=== PATIENT | male | born 1985 | race Caucasian/White ===

== ENCOUNTER 2019-03-27 12:20 | Emergency (ER) | payer SELFPAY ==
--- NOTE | 2019-03-27 13:47 | Emergency Department Report ---
- General Chief Complaint: Wound/Laceration Stated Complaint: CUT ON L FINGER Time Seen by Provider: 03/27/19 12:43 Source: patient, family Mode of arrival: Ambulatory Limitations: Language Barrier - History of Present Illness Initial Comments: Patient is a 33-year-old male who presents to the emergency room with complaints of a laceration to the left index finger that occurred while at work at 11:40 a.m. today. Patient was using a wood cutting saw. He states initially there was bleeding but has since resolved. He denies any pain in the finger just has pain where the laceration is. He is able to move the finger. denies any Past medical history or allergies to medications. He states his last tetanus was in June 2018. setswana translation by daughter - Related Data Previous Rx's Medication Instructions Recorded Last Taken Type cephALEXin [Keflex] 250 mg PO QID 7 Days #28 capsule 03/27/19 Unknown Rx Allergies Allergy/AdvReac Type Severity Reaction Status Date / Time No Known Allergies Allergy Verified 03/27/19 15:36 ED Review of Systems ROS: Stated complaint: CUT ON L FINGER Other details as noted in HPI Comment: All other systems reviewed and negative ED Past Medical Hx - Past Medical History Previous Medical History?: No - Surgical History Past Surgical History?: No - Social History Smoking Status: Current Every Day Smoker Substance Use Type: Alcohol - Medications Home Medications: Home Medications Medication Instructions Recorded Confirmed Last Taken Type cephALEXin [Keflex] 250 mg PO QID 7 Days #28 capsule 03/27/19 Unknown Rx ED Physical Exam - General Limitations: Language Barrier General appearance: alert, in no apparent distress - Head Head exam: Present: atraumatic, normocephalic - Eye Eye exam: Present: normal appearance - ENT ENT exam: Present: mucous membranes moist - Neurological Exam Neurological exam: Present: alert, oriented X3 - Psychiatric Psychiatric exam: Present: normal affect, normal mood - Skin Skin exam: Present: warm, dry, other (1 cm laceration to the dorsal surface of the left index finger which then becomes a skin avulsion into another 1 cm laceration that wraps around the finger, no tendon invovlement, no foreign body visualized, FROM of the left index finger, 2+ radial pulse, sensation intact) ED Course Vital Signs 03/27/19 03/27/19 12:29 16:37 Temperature 98.3 F 98.1 F Pulse Rate 73 80 Respiratory 18 18 Rate Blood Pressure 128/85 Blood Pressure 130/78 [Left] O2 Sat by Pulse 97 100 Oximetry - Laceration /Wound Repair Left Finger Wound Location: upper extremity (dorsum of left index finger) Wound Length (cm): 1 (1 cm laceration to the dorsal surface of the left index finger which then becomes a skin avulsion into another 1 cm laceration that wraps around the finger) Wound's Depth, Shape: irregular Wound Explored: clean Irrigated w/ Saline (ccs): 200 Betadine Prep?: Yes Volume Anesthetic (ccs): 3 (2% lidocaine) Wound Debrided: minimal Wound Repaired With: sutures Suture Size/Type: 5:0 Number of Sutures: 6 Layer Closure?: No Sterile Dressing Applied?: Yes Progress: area irrigated with 200 cc of saline, cleaned with betadine, 3 cc of 2% lidocaine without epi used for anesthetic, repaired with 5-0 prolene, [address], unable to fully approximate skin where area of skin avulsion is present, pt tolerated well, bleeding controlled, no complications, sterile dressing and splint applied ED Medical Decision Making - Radiology Data Radiology results: report reviewed Left index finger 3 views 1421 INDICATION: Chainsaw injury to index finger Patient's watch and ring finger ring or left in place. Bandaging is seen over the index finger laceration site. At the laceration site along the lateral aspect of the index finger at the distal interphalangeal joint, a penetrating fracture injury of the distal portion of the middle phalanx is seen along the lateral aspect. Possibly there is a tiny adjacent fragment though bandaging artifact makes this difficult to assess. No dislocation is seen. No other fracture is noted. Fracture line does not appear to extend into the joint space. Signer Name: Johnie Salcedo MD Signed: 03/27/2019 3:00 PM Workstation Name: [id number] Transcribed By: GJ Dictated By: Johnie Salcedo MD Electronically Authenticated By: Johnie Salcedo MD Signed Date/Time: 03/27/19 150 - Medical Decision Making Patient is a 33-year-old male who presents to the emergency room with complaints of a laceration to the left index finger that occurred while at work at 11:40 a.m. today. Patient was using a wood cutting saw. He states initially there was bleeding but has since resolved. He denies any pain in the finger just has pain where the laceration is. He is able to move the finger. denies any Past medical history or allergies to medications. He states his last tetanus was in June 2018. setswana translation by daughter. on exam: 1 cm laceration to the dorsal surface of the left index finger which then becomes a skin avulsion into another 1 cm laceration that wraps around the finger, no tendon invovlement, no foreign body visualized, FROM of the left index finger, 2+ radial pulse, sensation intact. laceration irrigated thoroughly with saline and cleaned with betadine. XR of the left index finger: At the laceration site along the lateral aspect of the index finger at the distal interphalangeal joint, a penetrating fracture injury of the distal portion of the middle phalanx is seen along the lateral aspect. Possibly there is a tiny adjacent fragment though bandaging artifact makes this difficult to assess. No dislocation is seen. No other fracture is noted. Fracture line does not appear to extend into the joint space. discussed with Dr. Mau Youssef open fracture findings, recommended thorough washout and placing on keflex, and to send to orthopedic as an outpatient. pt given prescription for keflex. advised to please keep area clean and dry. may wash with soap and water and immediately dry. Do not get in bathtub, hot tub, pool. take all medication as prescribed. Please follow-up with an orthopedic doctor in the next 2-3 days. It is very important that you follow-up with an orthopedic doctor. Return to the emergency room for any new or worsening symptoms or any signs of infection. Sutures will need to be removed in 7-10 days. Critical care attestation.: If time is entered above; I have spent that time in minutes in the direct care of this critically ill patient, excluding procedure time. ED Disposition Clinical Impression: Laceration Finger fracture Qualifiers: Encounter type: initial encounter Finger: index finger Fracture type: open Phalanx: middle Fracture alignment: nondisplaced Laterality: left Qualified Code(s): S62.651B - Nondisplaced fracture of middle phalanx of left index finger, initial encounter for open fracture Disposition: - TO HOME OR SELFCARE Is pt being admited?: No Does the pt Need Aspirin: No Condition: Stable Instructions: Suture Care (ED), Laceration (ED), Finger Fracture (ED) Additional Instructions: Please keep area clean and dry. may wash with soap and water and immediately dry. Do not get in bathtub, hot tub, pool. take all medication as prescribed. Please follow-up with an orthopedic doctor in the next 2-3 days. It is very important that you follow-up with an orthopedic doctor. Return to the emergency room for any new or worsening symptoms or any signs of infection. Sutures will need to be removed in 7-10 days. Prescriptions: cephALEXin [Keflex] 250 mg PO QID 7 Days #28 capsule Referrals: [facility] MD GRAHAM [Primary Care Provider] - 3-5 Days YOGESH BLAKE MD [Staff Physician] - 2-3 Days MICHELE PLUNKETT MD [Referring] - 2-3 Days Time of Disposition: 16:16 Print Language: LAO
--- NOTE | 2019-03-27 15:05 | XRay Report ---
Left index finger 3 views 1421 INDICATION: Chainsaw injury to index finger Patient's watch and ring finger ring or left in place. Bandaging is seen over the index finger lacera tion site. At the laceration site along the lateral aspect of the index finger at the distal interphalangeal christine nt, a penetrating fracture injury of the distal portion of the middle phalanx is seen along the later al aspect. Possibly there is a tiny adjacent fragment though bandaging artifact makes this difficult to assess. No dislocation is seen. No other fracture is noted. Fracture line does not appear to exten d into the joint space. Signer Name: Johnie Salcedo MD Signed: 03/27/2019 3:00 PM Workstation Name: [id number]
[2019-03-27] MEDS ORDERED: NACL 0.9% IR ONE (15:24)
[2019-03-27] MEDS ORDERED: XYLOCAINE 2% INFILTRATI ONE (15:24)
[2019-03-27] MEDS ORDERED: NACL 0.9% 500 ML IR ONE (15:28)
[2019-03-27 16:38] VITALS: BP 130/78
== END 2019-03-27 16:37 | disposition home or self-care (01) ==
LOC: ED 12:20
DX: S62.651A Nondisplaced fracture of middle phalanx of left index finger, initial encounter for closed fracture (principal); F17.200 Nicotine dependence, unspecified, uncomplicated; W27.8XXA Contact with other nonpowered hand tool, initial encounter; Y93.89 Activity, other specified; Y92.89 Other specified places as the place of occurrence of the external cause; Y99.8 Other external cause status

== ENCOUNTER 2021-04-27 13:54 | Emergency (ER) | payer SELFPAY ==
[2021-04-27 14:09] VITALS: BP 123/76
--- NOTE | 2021-04-27 14:24 | XRay Report ---
CHEST 2 VIEWS INDICATION: cough. COMPARISON: None FINDINGS: SUPPORT DEVICES: None. HEART: Within normal limits. LUNGS/PLEURA: Mild patchy multifocal airspace disease throughout the lungs. No pneumothorax. ADDITIONAL FINDINGS: None. IMPRESSION: 1. Pulmonary findings as above. Signer Name: Lorenzo Benavidez MD Signed: 04/27/2021 2:20 PM Workstation Name: [id number]
[2021-04-27 14:33] LABS: Basophils # (Auto) 0.1 K/mm3 (0.0-0.1); Basophils % (Auto) 1.7 % (0.0-1.8); Hematocrit 43.5 % (35.5-45.6); Hemoglobin 15.5 gm/dl (11.8-15.2); Lymphocytes # (Auto) 0.5 K/mm3 (1.2-5.4); Lymphocytes % (Auto) 11.2 % (13.4-35.0); Mean Corpuscular HGB Conc 36 % (32-34); Mean Corpuscular Volume 87 fl (84-94); Monocytes # (Auto) 0.2 K/mm3 (0.0-0.8); Monocytes % (Auto) 3.8 % (0.0-7.3); Platelet Count 217 K/mm3 (140-440); Red Blood Count 4.99 M/mm3 (3.65-5.03); Red Cell Distribution Width 12.2 % (13.2-15.2)
[2021-04-27 14:51] LABS: Alanine Aminotransferase 38 units/L (7-56); Albumin 3.9 g/dL (3.9-5); BUN/Creatinine Ratio 14; Blood Urea Nitrogen 11 mg/dL (9-20); Calcium 8.7 mg/dL (8.4-10.2); Hemolysis Index 2
--- NOTE | 2021-04-27 15:07 | Emergency Department Report ---
- General Chief Complaint: Upper Respiratory Infection Stated Complaint: HARD TO BREATHE, COUGH Time Seen by Provider: 04/27/21 14:03 Source: patient, server engineer (ms masterson, information systems security developer and du, legal secretary ) Mode of arrival: Ambulatory Limitations: No Limitations - History of Present Illness Initial Comments: Patient is a 35-year-old male presents emergency room complaints of symptoms of COVID-19. He states he began having symptoms on 04/21/2021. He states that he tested positive for COVID-19 on 04/24/2021. He reports he went to his primary care doctor and was started on Levaquin and prednisone. He states his biggest complaint is a dry cough. He states that the cough keeps him up at night. He states he has some chest discomfort after frequent coughing but otherwise denies any chest pain. He denies any shortness of breath, vomiting, diarrhea, fever. No past medical history. No allergies to medications. His is also positive for COVID-19. He did not receive vaccination for COVID-19. - Related Data Previous Rx's Medication Instructions Recorded Last Taken Type cephALEXin [Keflex] 250 mg PO QID 7 Days #28 capsule 03/27/19 Unknown Rx Azithromycin [Zithromax TAB] 250 mg PO QDAY 5 Days #6 tablet 04/27/21 Unknown Rx Benzonatate [Tessalon Perles] 100 mg PO Q8HR PRN #20 capsule 04/27/21 Unknown Rx Allergies Allergy/AdvReac Type Severity Reaction Status Date / Time No Known Allergies Allergy Verified 03/27/19 15:36 ED Review of Systems ROS: Stated complaint: HARD TO BREATHE, COUGH Other details as noted in HPI Comment: All other systems reviewed and negative ED Past Medical Hx - Past Medical History Previous Medical History?: No - Surgical History Past Surgical History?: No - Social History Smoking Status: Current Some Day Smoker Substance Use Type: None - Medications Home Medications: Home Medications Medication Instructions Recorded Confirmed Last Taken Type cephALEXin [Keflex] 250 mg PO QID 7 Days #28 capsule 03/27/19 Unknown Rx Azithromycin [Zithromax TAB] 250 mg PO QDAY 5 Days #6 tablet 04/27/21 Unknown Rx Benzonatate [Tessalon Perles] 100 mg PO Q8HR PRN #20 capsule 04/27/21 Unknown Rx ED Physical Exam - General Limitations: No Limitations General appearance: alert, in no apparent distress - Head Head exam: Present: atraumatic, normocephalic - Eye Eye exam: Present: normal appearance - ENT ENT exam: Present: mucous membranes moist - Respiratory Respiratory exam: Present: normal lung sounds bilaterally. Absent: respiratory distress, wheezes, rales, rhonchi, stridor, chest wall tenderness, accessory muscle use, decreased breath sounds, prolonged expiratory - Cardiovascular Cardiovascular Exam: Present: regular rate, normal rhythm, normal heart sounds. Absent: systolic murmur, diastolic murmur, rubs, gallop - Neurological Exam Neurological exam: Present: alert, oriented X3 - Psychiatric Psychiatric exam: Present: normal affect, normal mood - Skin Skin exam: Present: warm, dry, intact ED Course Vital Signs 04/27/21 14:01 Temperature 99.5 F Pulse Rate 86 Respiratory 20 Rate Blood Pressure 123/76 O2 Sat by Pulse 98 Oximetry ED Medical Decision Making - Lab Data Result diagrams: 04/27/21 14:08 04/27/21 14:08 Lab Results 04/27/21 04/27/21 Range/Units 14:08 14:08 WBC 4.7 (4.5-11.0) K/mm3 RBC 4.99 (3.65-5.03) M/mm3 Hgb 15.5 H (11.8-15.2) gm/dl Hct 43.5 (35.5-45.6) % MCV 87 (84-94) fl MCH 31 (28-32) pg MCHC 36 H (32-34) % RDW 12.2 L (13.2-15.2) % Plt Count 217 (140-440) K/mm3 Lymph % (Auto) 11.2 L (13.4-35.0) % Moody % (Auto) 3.8 (0.0-7.3) % Eos % (Auto) 0.0 (0.0-4.3) % Baso % (Auto) 1.7 (0.0-1.8) % Lymph # (Auto) 0.5 L (1.2-5.4) K/mm3 Moody # (Auto) 0.2 (0.0-0.8) K/mm3 Eos # (Auto) 0.0 (0.0-0.4) K/mm3 Baso # (Auto) 0.1 (0.0-0.1) K/mm3 Seg Neutrophils % 83.3 H (40.0-70.0) % Seg Neutrophils # 3.9 (1.8-7.7) K/mm3 Sodium 135 L (137-145) mmol/L Potassium 3.9 (3.6-5.0) mmol/L Chloride 100.4 (98-107) mmol/L Carbon Dioxide 24 (22-30) mmol/L Anion Gap 15 mmol/L BUN 11 (9-20) mg/dL Creatinine 0.8 (0.8-1.3) mg/dL Estimated GFR > 60 ml/min BUN/Creatinine Ratio 14 % Glucose 111 H (75-100) mg/dL Calcium 8.7 (8.4-10.2) mg/dL Total Bilirubin 0.50 (0.1-1.2) mg/dL AST 39 (5-40) units/L ALT 38 (7-56) units/L Alkaline Phosphatase 89 (35-129) units/L Total Protein 7.1 (6.3-8.2) g/dL Albumin 3.9 (3.9-5) g/dL Albumin/Globulin Ratio 1.2 % - Radiology Data Radiology results: report reviewed Ordering Physician: NESTOR EDMONDSON Date of Service: 04/27/21 Procedure(s): XR chest routine 2V Accession Number(s): [id number] cc: NESTOR EDMONDSON Fluoro Time In Minutes: CHEST 2 VIEWS INDICATION: cough. COMPARISON: None FINDINGS: SUPPORT DEVICES: None. HEART: Within normal limits. LUNGS/PLEURA: Mild patchy multifocal airspace disease throughout the lungs. No pneumothorax. ADDITIONAL FINDINGS: None. IMPRESSION: 1. Pulmonary findings as above. Signer Name: Lorenzo Benavidez MD Signed: 04/27/2021 2:20 PM Workstation Name: [id number] Transcribed By: TOOTIE Dictated By: Lorenzo Benavidez MD Electronically Authenticated By: Lorenzo Benavidez MD Signed Date/Time: 04/27/21 142 DD/ 18 TD/TT: Print - Medical Decision Making Patient is a 35-year-old male presents emergency room complaints of symptoms of COVID-19. He states he began having symptoms on 04/21/2021. He states that he tested positive for COVID-19 on 04/24/2021. He reports he went to his primary care doctor and was started on Levaquin and prednisone. He states his biggest complaint is a dry cough. He states that the cough keeps him up at night. He states he has some chest discomfort after frequent coughing but otherwise denies any chest pain. He denies any shortness of breath, vomiting, diarrhea, fever. No past medical history. No allergies to medications. His is also pos itive for COVID-19. He did not receive vaccination for COVID-19. Vitals are normal. No abnormality on physical examination as documented in chart. Patient is able to maintain oxygen saturation of 98 percent or higher on room air. Labs are stable. Chest x-ray: SUPPORT DEVICES: None. HEART: Within normal limits. LUNGS/PLEURA: Mild patchy multifocal airspace disease throughout the lungs. No pneumothorax. ADDITIONAL FINDINGS: None. Findings likely consistent with atypical pneumonia/COVID pneumonia. Discussed case with Dr. Bales, ER attending who advised to add on azithromycin given the atypical appearance and to give patient prescription for Tessalon Perles. advised pt Please take medication as prescribed. Please increase your fluid intake over the next several days. May take Tylenol as needed for fever or body aches. Follow-up with a primary care doctor for reexamination. Return to emergency room immediately for any new or worsening symptoms including but not limited to difficulty breathing, shortness of breath, severe chest pain, unable to tolerate by mouth intake, etc. Please self quarantine for 10 days from the onset of your symptoms. Advised for you to get a pulse oximetry meter [id number] and to return if your oxygen is below 93%. Critical care attestation.: If time is entered above; I have spent that time in minutes in the direct care of this critically ill patient, excluding procedure time. ED Disposition Clinical Impression: Pneumonia due to COVID-19 virus Disposition: HOME / SELF CARE / HOMELESS Is pt being admited?: No Does the pt Need Aspirin: No Condition: Stable Instructions: COVID-19 Frequently Asked Questions, COVID-19, COVID-19: How to Protect Yourself and Others - CDC, Bacterial Pneumonia (ED) Additional Instructions: Please take medication as prescribed. Please increase your fluid intake over the next several days. May take Tylenol as needed for fever or body aches. Follow-up with a primary care doctor for reexamination. Return to emergency room immediately for any new or worsening symptoms including but not limited to difficulty breathing, shortness of breath, severe chest pain, unable to tolerate by mouth intake, etc. Please self quarantine for 10 days from the onset of your symptoms. Advised for you to get a pulse oximetry meter [id number] and to return if your oxygen is below 93%. Vaughn la medicacin segn lo prescrito. Aumente la ingesta de lquidos anoop los prximos vega. Puede christopher Tylenol segn sea necesario para la fiebre o los patrice corporales. Hubert un seguimiento con un mdico de atencin primaria para un nuevo examen. Regrese a la dino de emergencias de inmediato si tiene sntomas nuevos o que empeoran, incluidos, entre otros, dificultad para respirar, falta de aire, dolor de pecho mery, incapacidad para tolerar la ingestin oral, etc. Pngase en cuarentena anoop 10 vega desde el inicio de eduardo sntomas. Se le recomienda que obtenga un medidor de oximetra de pulso de venta marjorie y que regrese si miller oxgeno est por debajo del 93%. Prescriptions: Benzonatate [Tessalon Perles] 100 mg PO Q8HR PRN #20 capsule PRN Reason: cough Azithromycin [Zithromax TAB] 250 mg PO QDAY 5 Days #6 tablet Referrals: ARACELIS GRAYSON MD [Staff Physician] - 2-3 Days your, primary care doctor [Other] - 2-3 Days Time of Disposition: 15:05 Print Language: KISWAHILI
== END 2021-04-28 04:19 | disposition home or self-care (01) ==
LOC: ED 13:54
DX: U07.1 COVID-19 (principal); J12.82 Pneumonia due to coronavirus disease 2019; F17.200 Nicotine dependence, unspecified, uncomplicated; Z79.899 Other long term (current) drug therapy
CPT/HCPCS: 36415; 71046; 80053; 85025

== ENCOUNTER 2021-04-29 22:55 | Emergency (ER) | payer SELFPAY ==
[2021-04-30 01:09] VITALS: BP 121/64
[2021-04-30] MEDS ORDERED: IPRATROPIUM 0.02% NEBU 2.5 ML IH ONE ×2 (01:15→04:10)
[2021-04-30] MEDS ORDERED: ALBUTEROL 2.5 MG/3 ML NEBU IH ONE ×2 (01:15→04:10)
[2021-04-30] MEDS ORDERED: methylPREDNISolone Sod Succinate 125 MG/2 ML INJ IM ONE ×2 (01:16→04:10)
--- NOTE | 2021-04-30 01:51 | XRay Report ---
CHEST 1 VIEW 04/30/2021 12:41 AM INDICATION / CLINICAL INFORMATION: cough, +covid. COMPARISON: 04/27/2021 FINDINGS: SUPPORT DEVICES: None. HEART / MEDIASTINUM: No significant abnormality. LUNGS / PLEURA: Patchy bilateral infiltrates remain with slight worsening. No pneumothorax or pleural fluid. ADDITIONAL FINDINGS: No significant additional findings. IMPRESSION: Slight worsening bilateral pneumonia. Signer Name: Juice Bone MD Signed: 04/30/2021 1:47 AM Workstation Name: [id number]
[2021-04-30 02:58] LABS: Alanine Aminotransferase 49 units/L (7-56); Albumin 3.8 g/dL (3.9-5); Blood Urea Nitrogen 11 mg/dL (9-20); Calcium 8.3 mg/dL (8.4-10.2); Hemolysis Index 0
[2021-04-30 03:07] LABS: BUN/Creatinine Ratio 16
[2021-04-30 03:25] LABS: Hemoglobin 14.5 gm/dl (11.8-15.2); Lymphocytes # (Auto) 1.1 K/mm3 (1.2-5.4); Lymphocytes % (Auto) 13.4 % (13.4-35.0); Mean Corpuscular HGB Conc 35 % (32-34); Mean Corpuscular Volume 87 fl (84-94); Monocytes # (Auto) 0.4 K/mm3 (0.0-0.8); Monocytes % (Auto) 5.3 % (0.0-7.3); Platelet Count 312 K/mm3 (140-440); Red Cell Distribution Width 12.3 % (13.2-15.2)
--- NOTE | 2021-04-30 03:59 | Emergency Department Report ---
ED Shortness of Breath HPI - General Chief Complaint: Dyspnea/Respdistress Stated Complaint: COLD SX/BODY PAIN Source: patient Mode of arrival: Ambulatory Limitations: Language Barrier - History of Present Illness Initial Comments: Patient is a 35-year-old male with no past medical history who presents to the ED with complaint of persistent nasal and sinus congestion, persistent shortness of breath, persistent dry cough, diffuse body aches and pains, intermittent fever and chills for the last 1 week, worse in the last 24 hours. Patient states that he recently tested positive for COVID-19 viral infection and was initially evaluated in this ED about 2 days ago and discharged home on medications. Patient states that he has not been able to sleep because of persi stent shortness of breath, persistent wheezing and cough and worsening body aches and pains. Patient states that other family members have had similar symptoms. Patient denies dizziness, syncope, nausea and vomiting, diarrhea, dysuria, urinary frequency and urgency, chest pain, palpitations, sore throat, change in vision or headache. MD Complaint: shortness of breath, cough -: Sudden, week(s) (1) Severity: severe Pain Scale: 7 Quality: aching, other (Chest tightness) Consistency: constant Improves With: nothing Worsens With: nothing Known History Of: other (COVID-19 viral infection) Context: other (COVID-19 infection) Associated Symptoms: cough Treatments Prior to Arrival: bronchodilator - Related Data Home Oxygen Therapy: No Previous Rx's Medication Instructions Recorded Last Taken Type cephALEXin [Keflex] 250 mg PO QID 7 Days #28 capsule 03/27/19 Unknown Rx Azithromycin [Zithromax TAB] 250 mg PO QDAY 5 Days #6 tablet 04/27/21 Unknown Rx Benzonatate [Tessalon Perles] 100 mg PO Q8HR PRN #20 capsule 04/27/21 Unknown Rx Albuterol Sulfate [Proventil Hfa] 1 - 2 puff IH Q4H PRN #1 hfa.aer.ad 04/30/21 Unknown Rx Ascorbic Acid [Vitamin C] 1,000 mg PO Q12H #40 tablet 04/30/21 Unknown Rx Promethazine HCl/Codeine 5 ml PO Q6H PRN #120 ml 04/30/21 Unknown Rx [Promethazine-Codeine Solution] Zinc Acetate [Galzin 50mg CAP] 50 mg PO DAILY #30 capsule 04/30/21 Unknown Rx Allergies Allergy/AdvReac Type Severity Reaction Status Date / Time No Known Allergies Allergy Verified 03/27/19 15:36 ED Review of Systems ROS: Stated complaint: COLD SX/BODY PAIN Other details as noted in HPI Constitutional: chills, fever, malaise, weakness Eyes: denies: eye pain, eye discharge, vision change ENT: congestion, other (Nasal and sinus congestion). denies: ear pain, throat pain Respiratory: cough, shortness of breath, wheezing Cardiovascular: chest pain (Chest tightness). denies: palpitations Endocrine: no symptoms reported Gastrointestinal: denies: abdominal pain, nausea, vomiting, diarrhea Genitourinary: denies: urgency, dysuria Musculoskeletal: arthralgia, myalgia. denies: back pain, joint swelling Skin: denies: rash, lesions Neurological: denies: headache, weakness, paresthesias Psychiatric: denies: anxiety, depression Hematological/Lymphatic: denies: easy bleeding, easy bruising ED Past Medical Hx - Past Medical History Previous Medical History?: No - Surgical History Past Surgical History?: No - Social History Smoking Status: Current Some Day Smoker Substance Use Type: None - Medications Home Medications: Home Medications Medication Instructions Recorded Confirmed Last Taken Type cephALEXin [Keflex] 250 mg PO QID 7 Days #28 capsule 03/27/19 Unknown Rx Azithromycin [Zithromax TAB] 250 mg PO QDAY 5 Days #6 tablet 04/27/21 Unknown Rx Benzonatate [Tessalon Perles] 100 mg PO Q8HR PRN #20 capsule 04/27/21 Unknown Rx Albuterol Sulfate [Proventil Hfa] 1 - 2 puff IH Q4H PRN #1 hfa.aer.ad 04/30/21 Unknown Rx Ascorbic Acid [Vitamin C] 1,000 mg PO Q12H #40 tablet 04/30/21 Unknown Rx Promethazine HCl/Codeine 5 ml PO Q6H PRN #120 ml 04/30/21 Unknown Rx [Promethazine-Codeine Solution] Zinc Acetate [Galzin 50mg CAP] 50 mg PO DAILY #30 capsule 04/30/21 Unknown Rx ED Physical Exam - General Limitations: Language Barrier General appearance: alert, in no apparent distress, anxious - Head Head exam: Present: atraumatic, normocephalic, normal inspection - Eye Eye exam: Present: normal appearance, PERRL, EOMI Pupils: Present: normal accommodation - ENT ENT exam: Present: normal orophraynx, mucous membranes moist, TM's normal bilaterally, normal external ear exam, other (Grossly congested nasal passages) - Neck Neck exam: Present: normal inspection, full ROM. Absent: tenderness - Respiratory Respiratory exam: Present: wheezes (Diffuse coarse wheezes throughout). Absent: respiratory distress, rales, rhonchi, chest wall tenderness, accessory muscle use, decreased breath sounds, other - Cardiovascular Cardiovascular Exam: Present: regular rate, normal rhythm, normal heart sounds. Absent: systolic murmur, diastolic murmur, rubs, gallop - GI/Abdominal GI/Abdominal exam: Present: soft, normal bowel sounds. Absent: tenderness, guarding, hyperactive bowel sounds, hypoactive bowel sounds, organomegaly - Extremities Exam Extremities exam: Present: normal inspection, full ROM, normal capillary refill - Back Exam Back exam: Present: normal inspection, full ROM. Absent: tenderness, CVA tenderness (R), CVA tenderness (L), muscle spasm, vertebral tenderness - Neurological Exam Neurological exam: Present: alert, oriented X3, CN II-XII intact, normal gait, reflexes normal - Psychiatric Psychiatric exam: Present: normal affect, normal mood, anxious - Skin Skin exam: Present: warm, dry, intact, normal color. Absent: rash ED Course Vital Signs 04/30/21 01:08 Temperature 99.3 F Pulse Rate 88 Respiratory 18 Rate Blood Pressure 121/64 [Right] O2 Sat by Pulse 93 Oximetry ED Medical Decision Making - Lab Data Result diagrams: 04/30/21 01:38 04/30/21 01:38 - Radiology Data Radiology results: report reviewed, image reviewed [facility] [address] [place] [address] XRay Report Signed Patient: ORLY CAMEJO MR #: [id number] : 1985 Acct:[id number] Age/Sex: 35 / M ADM Date: 04/29/21 Loc: ED Attending Dr: Ordering Physician: NESTOR PRUETT Date of Service: 04/30/21 Procedure(s): XR chest 1V ap Accession Number(s): [id number] cc: NESTOR PRUETT Fluoro Time In Minutes: CHEST 1 VIEW 04/30/2021 12:41 AM INDICATION / CLINICAL INFORMATION: cough, +covid. COMPARISON: 04/27/2021 FINDINGS: SUPPORT DEVICES: None. HEART / MEDIASTINUM: No significant abnormality. LUNGS / PLEURA: Patchy bilateral infiltrates remain with slight worsening. No pneumothorax or pleural fluid. ADDITIONAL FINDINGS: No significant additional findings. IMPRESSION: Slight worsening bilateral pneumonia. Signer Name: Juice Bone MD Signed: 04/30/2021 1:47 AM Workstation Name: [id number] Transcribed By: JUAN Dictated By: Juice Bone MD Electronically Authenticated By: Juice Bone MD Signed Date/Time: 04/30/21146 DD/ 5 TD/TT: - Medical Decision Making This is a 35-year-old male with no past medical history who presents to the ED with complaint of persistent nasal and sinus congestion, persistent shortness of breath, persistent dry cough, diffuse body aches and pains, intermittent fever and chills for the last 1 week, worse in the last 24 hours. Patient states that he recently tested positive for COVID-19 viral infection and was initially evaluated in this ED about 2 days ago and discharged home on medications. Patient states that he has not been able to sleep because of persistent shortness of breath, persistent wheezing and cough and worsening body aches and pains. Patient states that other family members have had similar symptoms. In the ED, patient is alert and oriented x3 and is not in any distress with normal vital signs, oxygen saturation ranging from 92 to 94% in room air. Patient was treated in the ED with DuoNeb and Solu-Medrol 125 mg intramuscular injection. Chest x-ray showed patchy bilateral infiltrates remain with slight worsening. No pneumothorax or pleural fluid. Patient is currently taking azithromycin, Levaquin among other medications. Patient was discharged home on medications for cough and advised to continue taking the previously prescribed medications, drink plenty of fluids and continue to self quarantine for 10 days following her diagnosis of COVID-19 viral infection. Patient was also advised to return to the ED immediately if symptoms get worse. Patient was advised to follow-up with his primary care physician after completion of his isolation days. - Differential Diagnosis Covid pneumonia; URI due to COVID-19; Covid 19 bronchitis Critical care attestation.: If time is entered above; I have spent that time in minutes in the direct care of this critically ill patient, excluding procedure time. ED Disposition Clinical Impression: Pneumonia due to 2019 novel coronavirus, Upper respiratory tract infection due to COVID-19 virus, Dyspnea due to COVID-19 Disposition: 01 HOME / SELF CARE / HOMELESS Is pt being admited?: No Does the pt Need Aspirin: No Condition: Stable Instructions: Bacterial Pneumonia (ED), Shortness of Breath, Adult, [id number], COVID-19 Frequently Asked Questions, Upper Respiratory Infection, Adult, [id number], Cough, Adult, [id number] Additional Instructions: Garcia radiografa de trax mostr un leve empeoramiento de la neumona bilateral debido a la infeccin viral COVID-19 que le diagnosticaron recientemente. Por lo tanto, contine tomando los medicamentos recetados anteriormente, heide muchos lquidos y pngase en cuarentena anoop 10 vega mientras se recupera de la infeccin viral COVID-19. Regrese al departamento de emergencias de inmediato si eduardo sntomas empeoran. De lo contrario, julien un seguimiento con garcia mdico de atencin primaria al finalizar nuestros vega de aislamiento heptico. Prescriptions: Zinc Acetate [Galzin 50mg CAP] 50 mg PO DAILY #30 capsule Promethazine HCl/Codeine [Promethazine-Codeine Solution] 5 ml PO Q6H PRN #120 ml PRN Reason: Cough Albuterol Sulfate [Proventil Hfa] 1 - 2 puff IH Q4H PRN #1 hfa.aer.ad PRN Reason: Shortness Of Breath Ascorbic Acid [Vitamin C] 1,000 mg PO Q12H #40 tablet Referrals: [facility] [Provider Group] - 7-10 days Time of Disposition: 04:02 Print Language: TURKISH
== END 2021-04-30 04:15 | disposition home or self-care (01) ==
LOC: ED 22:55
DX: U07.1 COVID-19 (principal); J12.82 Pneumonia due to coronavirus disease 2019; J06.9 Acute upper respiratory infection, unspecified; F17.200 Nicotine dependence, unspecified, uncomplicated; Z79.899 Other long term (current) drug therapy
CPT/HCPCS: 36415; 71045; 80053; 85025; 94640; 96372; 99284; J2930